=== PATIENT | male | born 1995 | race Caucasian/White ===

== ENCOUNTER 2023-05-10 20:51 | Inpatient (IN) ==
--- NOTE | 2023-05-10 21:32 | Emergency Department Note ---
Impression & Plan Depression with suicidal ideation, Suicide attempt by alcohol poisoning ED Provider Note NAME: JORGE HAIDER AGE: 27 SEX: M : 1995 ARRIVES VIA: Walk-In INFORMANT: [Patient][, ] ED PROVIDER(S): [Francisco Allen MD] CHIEF COMPLAINT: Suicidal ideation, depression MEDICAL DECISION MAKING: Patient presents due to concern for suicidal ideation and associated depression and had plan to drink herself to . Blood work was obtained and the patient was deemed medically cleared. The patient was evaluated by the psych case work aide. Patient currently voluntary 201 and does not appear to be clinically intoxicated. Patient signed out to Dr. Cuellar pending disposition. Prior /Outside records reviewed: [none] Differential diagnosis: Mood disorder, infection, hypoglycemia, electrolyte abnormalities, cardiac sourc es, intracerebral event, toxicologic, trauma, neurologic, as well as other pathologies. Diagnostics, as interpreted by me: Medical decision rules: Suicide severity scale HPI: Patient presents due to concern for suicidal ideation with plan to drink herself to . The patient states that she began drinking vodka around 11 and finished around 5 ventricular half of 10/05. The patient believes that she may have vomited for amount of this up. The patient states that she did this with the intent to kill herself. The patient does have a prior history of drinking and associated overdose of muscle relaxants in the past. Patient denies any HI or AVH. Outside of her concern for her own safety in terms of self-harm the patient has no other concerns about home safety. Patient denies any access to guns or weapons. Patient states sleep and appetite have been okay but could be improved. PAST MEDICAL HISTORY: Transgender male to female PAST SURGICAL HISTORY: No pertinent past surgical history SOCIAL HISTORY: Uses alcohol but denies tobacco or drug use. HOME MEDICATIONS: [See Below] ALLERGIES: [See Below] VITALS: [See Below] PHYSICAL EXAMINATION: GENERAL: NAD, non-toxic. EYE EXAM: Normal conjunctiva. PERRL, no anisocoria and EOM's grossly intact w/o pain. OROPHARYNX: Moist mucus membranes, grossly normal dentition. NECK: Supple, no nuchal rigidity, no adenopathy, non-tender. No signs of meningismus. FROM of the neck with good chin to chest and neck extension. No stridor. LUNGS: Clear to auscultation. Normal chest wall mechanics. HEART: NSR, no MRG. ABDOMEN: Abdomen soft, non-tender, no masses, no rebound or guarding. BACK: No CVA TTP. SKIN: No rashes and no bruising. UPPER EXTREMITIES: Upper extremities are grossly normal. LOWER EXTREMITIES: Grossly normal, no edema. NEURO EXAM: A&O x3, cranial nerves II-XII grossly intact, normal speech, moves all 4 extremities. Psych: Depressed mood, SI with plan, negative HI or AVH. 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 Beliefs That Will Affect Care: None Feels Safe at Home: Yes Gender Identity: Transgender Female Assistive Devices: Contacts and Glasses Allergies Allergies Allergy/AdvReac Type Severity Reaction Status Date / Time cat dander Allergy Mild Unverified 05/11/23 17:27 dog dander Allergy Mild Unverified 05/11/23 17:27 Home Meds Home Medications Medication Instructions Recorded Confirmed Carepoint Luer Lock Syringe 05/10/23 05/10/23 Hypodermic [place] 05/10/23 05/10/23 albuterol sulfate 90 mcg/actuation 1 puff inhalation Q6H PRN 05/11/23 05/11/23 aerosol inhaler Shortness Of Breath Or Wheezing progesterone micronized 200 mg 200 mg PO QPM 05/11/23 05/11/23 capsule spironolactone 100 mg tablet 100 mg PO BID 05/11/23 05/11/23 Previous Rx's Medication Instructions Recorded escitalopram oxalate 10 mg tablet 10 mg PO QAM #30 tabs 05/13/23 estradiol valerate 20 mg/mL 8 mg (0.4 mL) IM WK #5 mL 05/13/23 intramuscular oil Results & Data (ED) Vital Signs Vital Signs - 24 hr 05/10/23 21:00 Temperature 36.5 C Temperature Source Temporal Artery Scan Pulse Rate 104 H Respiratory Rate 20 Respiratory Effort / Characteristics Non-Labored Spontaneous Respiratory Depth Normal Blood Pressure 128/78 Blood Pressure Mean 94 Pulse Oximetry 97 Oxygen Delivery Method Room Air Sepsis New/Unexplained Change in Mental Status N/A Sepsis Action Taken by Nursing No Action Required Home Medications Current Medication List: was personally reviewed by ma Laboratory Data Attestation: I reviewed the patient's lab results. 05/10/23 21:22 05/10/23 21:22 Lab Results 05/10/23 05/10/23 05/10/23 Range/Units 21:15 21:15 21:22 WBC 14.16 H (4.8-10.8) K/ul RBC 4.66 (4.20-5.40) M/uL Hgb 15.0 (12.0-16.0) g/dl Hct 42.0 (37.0-47.0) % MCV 90.1 (80.0-100.0) fL MCH 32.2 (25.0-34.0) pg MCHC 35.7 (32.0-36.0) g/dL RDW Std Deviation 38.9 (36.4-46.3) fL RDW Coeff of Monica 11.9 (11.5-14.5) % Plt Count 362 (130-400) K/uL MPV 10.9 (9.4-12.4) fL Immature Gran % (Auto) 0.4 % Neut % (Auto) 80.3 % Lymph % (Auto) 12.4 % [place] % (Auto) 6.2 % Eos % (Auto) 0.3 % Baso % (Auto) 0.4 % Neut # (Auto) 11.37 H (1.40-6.50) K/uL Lymph # (Auto) 1.76 (1.2-3.4) K/uL [place] # (Auto) 0.88 H (0.11-0.59) K/uL Eos # (Auto) 0.04 (0-0.50) K/uL Baso # (Auto) 0.06 (0-0.2) K/uL Immature Gran # (Auto) 0.05 (0.01-0.20) K/uL Sodium (136-145) mmol/L Potassium (3.5-5.1) mmol/L Chloride (98-107) mmol/L Carbon Dioxide (21-32) mmol/L Anion Gap (3-11) BUN (6-23) mg/dl Creatinine (0.6-1.2) mg/dl Est Cr Clr Drug Dosing ml/min Est GFR ( Amer) ml/min Est GFR (Non-Af Amer) ml/min BUN/Creatinine Ratio (10-20) Glucose (70-99(Fasting)) mg/dl Calcium (8.6-10.3) mg/dl Total Bilirubin (0.2-1.0) mg/dl AST (13-39) U/L ALT (7-52) U/L Alkaline Phosphatase (34-104) U/L Total Protein (6.0-8.3) gm/dl Albumin (3.4-5.0) gm/dl Globulin (2.5-4.0) gm/dl Albumin/Globulin Ratio (0.9-2) TSH (0.300-4.500) uIu/ml Urine Color Yellow Urine Appearance Clear (Clear) Urine pH 6.0 (4.5-7.5) Ur Specific [place] 1.019 (1.000-1.030) Urine Protein Negative (Negative) Urine Glucose (UA) Negative (Negative) Urine Ketones Trace H (Negative) Urine Blood Negative (Negative) Urine Nitrite Negative (Negative) Urine Bilirubin Negative (Negative) Urine Urobilinogen Negative (Negative) Ur Leukocyte Esterase Negative (Negative) POC Ur Test (NEG) Salicylates (3.0-30) mg/dl Urine Opiates Screen Neg (Neg) Ur Methadone, Qual Neg (Neg) Acetaminophen (10-30) ug/ml Urine Barbiturates Neg (Neg) Ur Phencyclidine (PCP) Neg (Neg) U Amphetamin/Meth Scrn Neg (Neg) MDMA (Ecstasy) Screen Neg (Neg) U Benzodiazepines Scrn Neg (Neg) Ur Cocaine Metabolite Neg (Neg) U Marijuana (THC) Screen Neg (Neg) Ethyl Alcohol mg/dL (<10.0) mg/dl SARS-CoV-2, RNA, NAAT (NEGATIVE) 05/10/23 05/10/23 05/10/23 Range/Units 21:22 21:22 21:22 WBC (4.8-10.8) K/ul RBC (4.20-5.40) M/uL Hgb (12.0-16.0) g/dl Hct (37.0-47.0) % MCV (80.0-100.0) fL MCH (25.0-34.0) pg MCHC (32.0-36.0) g/dL RDW Std Deviation (36.4-46.3) fL RDW Coeff of Monica (11.5-14.5) % Plt Count (130-400) K/uL MPV (9.4-12.4) fL Immature Gran % (Auto) % Neut % (Auto) % Lymph % (Auto) % [place] % (Auto) % Eos % (Auto) % Baso % (Auto) % Neut # (Auto) (1.40-6.50) K/uL Lymph # (Auto) (1.2-3.4) K/uL [place] # (Auto) (0.11-0.59) K/uL Eos # (Auto) (0-0.50) K/uL Baso # (Auto) (0-0.2) K/uL Immature Gran # (Auto) (0.01-0.20) K/uL Sodium 137 (136-145) mmol/L Potassium 3.6 (3.5-5.1) mmol/L Chloride 104 (98-107) mmol/L Carbon Dioxide 25 (21-32) mmol/L Anion Gap 8 (3-11) BUN 11 (6-23) mg/dl Creatinine 0.73 (0.6-1.2) mg/dl Est Cr Clr Drug Dosing 109.3 ml/min Est GFR ( Amer) 131.7 ml/min Est GFR (Non-Af Amer) 113.7 ml/min BUN/Creatinine Ratio 15.1 (10-20) Glucose 89 (70-99(Fasting)) mg/dl Calcium 9.8 (8.6-10.3) mg/dl Total Bilirubin 0.3 (0.2-1.0) mg/dl AST 15 (13-39) U/L ALT 10 (7-52) U/L Alkaline Phosphatase 50 (34-104) U/L Total Protein 7.8 (6.0-8.3) gm/dl Albumin 4.8 (3.4-5.0) gm/dl Globulin 3.0 (2.5-4.0) gm/dl Albumin/Globulin Ratio 1.6 (0.9-2) TSH 1.863 (0.300-4.500) uIu/ml Urine Color Urine Appearance (Clear) Urine pH (4.5-7.5) Ur Specific [place] (1.000-1.030) Urine Protein (Negative) Urine Glucose (UA) (Negative) Urine Ketones (Negative) Urine Blood (Negative) Urine Nitrite (Negative) Urine Bilirubin (Negative) Urine Urobilinogen (Negative) Ur Leukocyte Esterase (Negative) POC Ur Test (NEG) Salicylates < 3.0 L (3.0-30) mg/dl Urine Opiates Screen (Neg) Ur Methadone, Qual (Neg) Acetaminophen < 3 L (10-30) ug/ml Urine Barbiturates (Neg) Ur Phencyclidine (PCP) (Neg) U Amphetamin/Meth Scrn (Neg) MDMA (Ecstasy) Screen (Neg) U Benzodiazepines Scrn (Neg) Ur Cocaine Metabolite (Neg) U Marijuana (THC) Screen (Neg) Ethyl Alcohol mg/dL (<10.0) mg/dl SARS-CoV-2, RNA, NAAT (NEGATIVE) 05/10/23 05/10/23 05/10/23 Range/Units 21:22 21:22 21:38 WBC (4.8-10.8) K/ul RBC (4.20-5.40) M/uL Hgb (12.0-16.0) g/dl Hct (37.0-47.0) % MCV (80.0-100.0) fL MCH (25.0-34.0) pg MCHC (32.0-36.0) g/dL RDW Std Deviation (36.4-46.3) fL RDW Coeff of Monica (11.5-14.5) % Plt Count (130-400) K/uL MPV (9.4-12.4) fL Immature Gran % (Auto) % Neut % (Auto) % Lymph % (Auto) % [place] % (Auto) % Eos % (Auto) % Baso % (Auto) % Neut # (Auto) (1.40-6.50) K/uL Lymph # (Auto) (1.2-3.4) K/uL [place] # (Auto) (0.11-0.59) K/uL Eos # (Auto) (0-0.50) K/uL Baso # (Auto) (0-0.2) K/uL Immature Gran # (Auto) (0.01-0.20) K/uL Sodium (136-145) mmol/L Potassium (3.5-5.1) mmol/L Chloride (98-107) mmol/L Carbon Dioxide (21-32) mmol/L Anion Gap (3-11) BUN (6-23) mg/dl Creatinine (0.6-1.2) mg/dl Est Cr Clr Drug Dosing ml/min Est GFR ( Amer) ml/min Est GFR (Non-Af Amer) ml/min BUN/Creatinine Ratio (10-20) Glucose (70-99(Fasting)) mg/dl Calcium (8.6-10.3) mg/dl Total Bilirubin (0.2-1.0) mg/dl AST (13-39) U/L ALT (7-52) U/L Alkaline Phosphatase (34-104) U/L Total Protein (6.0-8.3) gm/dl Albumin (3.4-5.0) gm/dl Globulin (2.5-4.0) gm/dl Albumin/Globulin Ratio (0.9-2) TSH (0.300-4.500) uIu/ml Urine Color Urine Appearance (Clear) Urine pH (4.5-7.5) Ur Specific [place] (1.000-1.030) Urine Protein (Negative) Urine Glucose (UA) (Negative) Urine Ketones (Negative) Urine Blood (Negative) Urine Nitrite (Negative) Urine Bilirubin (Negative) Urine Urobilinogen (Negative) Ur Leukocyte Esterase (Negative) POC Ur Test NEG (NEG) Salicylates (3.0-30) mg/dl Urine Opiates Screen (Neg) Ur Methadone, Qual (Neg) Acetaminophen (10-30) ug/ml Urine Barbiturates (Neg) Ur Phencyclidine (PCP) (Neg) U Amphetamin/Meth Scrn (Neg) MDMA (Ecstasy) Screen (Neg) U Benzodiazepines Scrn (Neg) Ur Cocaine Metabolite (Neg) U Marijuana (THC) Screen (Neg) Ethyl Alcohol mg/dL 79.9 H (<10.0) mg/dl SARS-CoV-2, RNA, NAAT NEGATIVE (NEGATIVE) Administered Medications Discontinued Medications Escitalopram Oxalate (Escitalopram Oxalate 10 Mg Tab) [facility] [place] 06/10/23 12:44 Last Admin: 05/13/23 08:18 Dose: 5 mg Documented By: Admin: 05/12/23 08:39 Dose: 5 mg Documented By: Admin: 05/11/23 13:00 Dose: 5 mg Documented By: MARIEF Folic Acid (Folic Acid 1 Mg Tab) 1 mg PO QAM [facility] Stop: 06/10/23 08:59 Last Admin: 05/13/23 08:17 Dose: 1 mg Documented By: Admin: 05/12/23 08:40 Dose: 1 mg Documented By: Admin: 05/11/23 09:59 Dose: 1 mg Documented By: BNT Spironolactone (Spironolactone 100 Mg Tab) 100 mg PO BID17 [facility] Stop: 06/10/23 16:59 Last Admin: 05/13/23 17:08 Dose: 100 mg Documented By: Admin: 05/13/23 08:19 Dose: 100 mg Documented By: Admin: 05/12/23 17:09 Dose: 100 mg Documented By: Admin: 05/12/23 08:40 Dose: 100 mg Documented By: Admin: 05/11/23 17:12 Dose: 100 mg Documented By: TEREZAR Thiamine HCl (Thiamine Hcl 100 Mg Tab) [facility] [place]: 06/10/23 08:59 Last Admin: 05/13/23 08:18 Dose: 100 mg Documented By: Admin: 05/12/23 08:40 Dose: 100 mg Documented By: Admin: 05/11/23 09:59 Dose: 100 mg Documented By: BNT Discharge Plan Visit Data Chief Complaint: Mental Health Evaluation Stated Complaint: SUICIDAL THOUGHTS, INTOXICATED ED Provider: Francisco Allen Discharge Problem: Depression with suicidal ideation, Suicide attempt by alcohol poisoning Patient Disposition: Admitted As Inpatient Discharge Instructions Interventions: ED Discharge Assessment Last Done: 05/11/23 01:40
[2023-05-10 22:19] LABS: Basophils # (auto) 0.06 K/uL (0-0.2); Basophils % (auto) 0.4 %; Eosinophils # (auto) 0.04 K/uL (0-0.50); Eosinophils % (auto) 0.3 %; Immature Granulocytes # (auto) 0.05 K/uL (0.01-0.20); Immature Granulocytes % (auto) 0.4 %; Lymphocytes # (auto) 1.76 K/uL (1.2-3.4); Lymphocytes % (auto) 12.4 %; Mean Corpuscular Hemoglobin 32.2 pg (25.0-34.0); Mean Corpuscular Hgb Conc 35.7 g/dL (32.0-36.0); Mean Corpuscular Volume 90.1 fL (80.0-100.0); Mean Platelet Volume 10.9 fL (9.4-12.4); Monocytes # (auto) 0.88 K/uL (0.11-0.59); Monocytes % (auto) 6.2 %; Neutrophils # (auto) 11.37 K/uL (1.40-6.50); Neutrophils % (auto) 80.3 %; Platelet Count 362 K/uL (130-400); RDW Coefficient of Variation 11.9 % (11.5-14.5); RDW Standard Deviation 38.9 fL (36.4-46.3); Red Blood Count 4.66 M/uL (4.20-5.40); White Blood Count 14.16 K/ul (4.8-10.8)
[2023-05-10 22:32] LABS: Appearance Urine Clear (Clear); Bilirubin Urine Negative (Negative); Blood Urine Negative (Negative); Color Urine Yellow; Glucose Urine UA Negative (Negative); Ketones Urine Trace (Negative); Leukocyte Esterase Urine Negative (Negative); Nitrite Urine Negative (Negative); Protein Urine Negative (Negative); Specific Gravity Urine 1.019 (1.000-1.030); Urobilinogen Urine Negative (Negative)
[2023-05-10 22:37] LABS: Acetaminophen < 3 ug/ml (10-30); Salicylate < 3.0 mg/dl (3.0-30)
[2023-05-10 22:38] LABS: Amphetamines+Metham, Urine Neg (Neg); Barbiturates, Urine Neg (Neg); Benzodiazepine, Urine Neg (Neg); Cocaine, Urine Neg (Neg); MDMA (Ecstacy), Urine Neg (Neg); Methadone, Urine Neg (Neg); Opiate, Urine Neg (Neg); Phencyclidine, Urine Neg (Neg)
[2023-05-10 22:41] LABS: Albumin Globulin Ratio 1.6 (0.9-2); Albumin Level 4.8 gm/dl (3.4-5.0); BUN Creatinine Ratio 15.1 (10-20); Bilirubin,Total 0.3 mg/dl (0.2-1.0); Calcium 9.8 mg/dl (8.6-10.3); Creatinine Clr Calc Pharmacy 109.3 ml/min; Est GFR (African American) 131.7 ml/min; Est GFR (Non-African American) 113.7 ml/min; Potassium 3.6 mmol/L (3.5-5.1); Total Protein 7.8 gm/dl (6.0-8.3)
[2023-05-11] MEDS ORDERED: ACETAMINOPHEN 325 MG TAB PO PRN (02:19)
[2023-05-11] MEDS ORDERED: BISMUTH SUBSALICYLATE LIQD 236 ML PO PRN (02:19)
[2023-05-11] MEDS ORDERED: ALUMINUM/MAGNESIUM SUSP 30 ML UDC PO PRN (02:19)
[2023-05-11] MEDS ORDERED: hydrOXYzine HCl 25 MG TAB PO PRN ×2 (02:19)
[2023-05-11] MEDS ORDERED: MAGNESIUM HYDROXIDE SUSP 30 ML UDC PO PRN (02:19)
[2023-05-11] MEDS ORDERED: SODIUM CHLORIDE 0.65% NA SOLN 45 ML (OCEAN) PRN (02:19)
--- NOTE | 2023-05-11 03:56 | Emergency Department Note ---
ED Visit Note This case was signed out to me at change of shift awaiting evaluation by [facility] S. They have evaluated the patient and accepted her to their unit. .
[2023-05-11] MEDS ORDERED: LORazepam 1 MG TAB PO PRN ×3 (06:52)
[2023-05-11] MEDS ORDERED: Ativan PO Alcohol Withdrawal--Active Protocol PO PRN (06:52)
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
[2023-05-11] MEDS: THIAMINE HCL 100 MG TAB PO SCH (09:59)
[2023-05-11] MEDS: FOLIC ACID 1 MG TAB PO SCH (09:59)
[2023-05-11] MEDS: ESCITALOPRAM OXALATE 10 MG TAB PO SCH (13:00)
[2023-05-11] MEDS ORDERED: ALBUTEROL HFA 8 GM INHALER INH PRN (14:25)
[2023-05-11] MEDS: SPIRONOLACTONE 100 MG TAB PO SCH (17:12)
--- NOTE | 2023-05-11 17:48 | Electrocardiogram Report ---
Test Reason : Blood Pressure : / mmHG Vent. Rate : 062 BPM Atrial Rate : 062 BPM P-R Int : 134 ms QRS Dur : 086 ms QT Int : 412 ms P-R-T Axes : 058 052 055 degrees QTc Int : 418 ms Sinus rhythm with marked sinus arrhythmia Otherwise normal ECG No previous ECGs available Confirmed by Rodney Stovall ([id number]) on 05/11/2023 5:47:51 PM Referred By: REFERRED SELF Confirmed By:Jordi Stovall
[2023-05-12] MEDS: ESCITALOPRAM OXALATE 10 MG TAB PO SCH (08:39)
[2023-05-12] MEDS: SPIRONOLACTONE 100 MG TAB PO SCH ×2 (08:40→17:09)
[2023-05-12] MEDS: FOLIC ACID 1 MG TAB PO SCH (08:40)
[2023-05-12] MEDS: THIAMINE HCL 100 MG TAB PO SCH (08:40)
--- NOTE | 2023-05-12 15:21 | Psychiatric Progress Note ---
Date of Service May 12, 2023 Impression / Recommendations Impression 27 year old woman admitted for worsening depression, anxiety and suicide attempt via alcohol ingestion with recent increasing alcohol use in context of gender transition and limited support. Diagnostically consistent with unspecified depressive disorder with differential including major depressive disorder with anxious features and/or gender dysphoria versus alcohol-induced depression given recent increase of use. She is deemed in need of psychiatric hospitalization for diagnostic clarification, safety and stabilization, medication management and development of further coping skills. MNPR: gender diversity 05/12/23: Reviewed care by Dr. Michael in italics. notes improvement Inventory Assets Strengths: employed, willing to get treatment Needs: safety and stabilization, medication adjustment, additional coping skills, increased outpatient services Suicide Risk Level Suicide Risk Level: High-Moderate (q15 min suicide checks) Suicide Risk Level Comments: Risk Factors Assessment Male: No : Yes Do You Have Access To A Gun?: No Health Problems: No Mental Health Diagnoses: Yes Substance Use Disorders: Yes Previous Attempt: Yes Family History of Suicide: No Previous Psychiatric Hospitalization: No Protective Factors Assessment Employed: Yes ([employer]) Stable Relationships: Yes (with roommate) Supportive Family: No Interval History Identifying Information Julieth HAIDER is a 27-year-old transgender woman who currently lives in [place] with her friend, has a history of gender dysphoria, history of intermittent SI, and was admitted on 05/11/23 01:21 on a 201 voluntary commitment for suicide attempt via alcohol intoxication. Chief Complaint "I really want to start my new job Sunday, the thing I did this over won't happen again and besides it was stupid." Review of Systems Sleep Information Total Hours of Sleep: 6 Sleep Comments: pt admit with late admission Meal Information Percent Meal Consumed - Breakfast: 100 Percent Meal Consumed - Lunch: 100 Percent Meal Consumed - Dinner: 80 Subjective Subjective Patient was seen & assessed and interval progress reviewed with nursing and social work. Julieth denies any side effects related to Lexapro, attributes some mild fatigue to restarting spironolactone. Discussed their frustration with outpatient scheduling/messaging systems. States roommate got rid of all of the alcohol in the apartment. Agreeable to a support meeting. Physical Exam Psychiatric Orientation: alert and oriented x 3 Apperance: appropriately dressed and appropriately groomed Eye Contact: good eye contact Motor Behavior: no abnormal motor movements Speech: normal rate/rhythm/volume of speech Affect: + depressed affect Mood: + depressed mood Thought Process: goal directed thought process Thought Content: reality based without delusions Suicidal Thoughts: denies suicidal thoughts Homicidal Thoughts: denies homicidal thoughts Hallucinations: no auditory hallucinations and no visual hallucinations Cognition: attention grossly intact and language grossly intact Estimated Intelligence: consistent with education level Insight: + limited insight Judgment: + limited judgement Vital Signs (Past 24 Hours) Last Vital Signs Temp 36.6 C 05/12/23 06:55 Pulse 64 05/12/23 06:56 Resp 16 05/12/23 06:55 BP 106/71 05/12/23 06:56 Pulse Ox 97 05/11/23 00:21 O2 Del Method Room Air 05/11/23 00:21 Results & Data [facility] Current Inpatient Medications Current Inpatient Medications: Current Inpatient Medications Acetaminophen (Acetaminophen 325 Mg Tab) 650 mg PO Q4H PRN PRN Reason: Headache or Minor Fever Stop: 06/10/23 02:18 Al Hydrox/Mg Hydrox/Simethicone (Aluminum/Magnesium Susp 30 Ml Udc) 30 ml PO Q4H PRN PRN Reason: GI Upset Stop: 06/10/23 02:18 Albuterol (Albuterol Hfa 8 Gm Inhaler) 1 puffs INH Q6H PRN PRN Reason: Shortness Of Breath Or Wheezing Stop: 06/10/23 14:24 Bismuth Subsalicylate (Bismuth Subsalicylate Liqd 236 Ml) 15 ml PO PRN PRN PRN Reason: Loose Stool Stop: 06/10/23 02:18 Escitalopram Oxalate (Escitalopram Oxalate 10 Mg Tab) 5 mg PO QAM JONEL Stop: 06/10/23 12:44 Last Admin: 05/12/23 08:39 Dose: 5 mg Folic Acid (Folic Acid 1 Mg Tab) 1 mg PO QAM JONEL Stop: 06/10/23 08:59 Last Admin: 05/12/23 08:40 Dose: 1 mg Hydroxyzine HCl (Hydroxyzine Hcl 25 Mg Tab) 50 mg PO HSZ PRN PRN Reason: Insomnia Stop: 06/10/23 02:18 Hydroxyzine HCl (Hydroxyzine Hcl 25 Mg Tab) 25 mg PO Q4H PRN PRN Reason: Anxiety Stop: 06/10/23 02:18 Magnesium Hydroxide (Magnesium Hydroxide Susp 30 Ml Udc) 30 ml PO DAILY PRN PRN Reason: Constipation Stop: 06/10/23 02:18 Sodium Chloride (Sodium Chloride 0.65% Na Soln 45 Ml ([place])) 1 - 2 sprays NA PRN PRN PRN Reason: Nasal Dryness/Congestion Stop: 06/10/23 02:18 Spironolactone (Spironolactone 100 Mg Tab) 100 mg PO [id number] JONEL Stop: 06/10/23 16:59 Last Admin: 05/12/23 08:40 Dose: 100 mg Thiamine HCl (Thiamine Hcl 100 Mg Tab) 100 mg PO QAM JONEL Stop: 06/10/23 08:59 Last Admin: 05/12/23 08:40 Dose: 100 mg Mental Health & Subst Abuse Tx Psychiatrist Name of Psychiatrist: [facility] - Intake Psychiatrist's Date Of Appointment With Psychiatric Provider: 05/15/23 Time of Appointment with Psychiatrist: 3:00 PM Psychiatric Appointment Comment: Telehealth - link will be sent to phone/email Therapist Name of Therapist: [facility] - Intake Therapist's Date of Therapist Appointment: 05/15/23 Time of Therapist Appointment: 3:00 PM Therapy Appointment Comment: Telehealth - link will be sent to phone/email Business Machines Teacher Name of Business Machines Teacher: [employer] Phone Number for Business Machines Teacher: [phone] Case Management Appointment Comment: Please call if you are interested in a Blended Business Machines Teacher. Post Discharge Appointments Primary Care Physician Name Of Family Doctor/PCP: [facility] Date of Future Appointment with PCP: 06/21/2023 Time of Appointment with PCP: 12:45 PM arrival time Provider Appointment Comment: [place] [id number] Contact Information Discharge Discharge Address: [address] [place], [place] [address]
[2023-05-13] MEDS: FOLIC ACID 1 MG TAB PO SCH (08:17)
[2023-05-13] MEDS: THIAMINE HCL 100 MG TAB PO SCH (08:18)
[2023-05-13] MEDS: ESCITALOPRAM OXALATE 10 MG TAB PO SCH (08:18)
[2023-05-13] MEDS: SPIRONOLACTONE 100 MG TAB PO SCH ×2 (08:19→17:08)
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
== END 2023-05-13 18:45 | disposition home or self-care (01) | DRG 881 ==
LOC: EDSEX 20:51 → ED 20:51 → 3S 05-11 01:21 → SUATTDRO 05-11 01:21 → 3S 05-11 01:40

== ENCOUNTER 2024-07-30 21:03 | Inpatient (IN) ==
--- NOTE | 2024-07-30 21:42 | Emergency Department Note ---
Impression & Plan Depression with suicidal ideation ED Provider Note NAME: JORGE HAIDER AGE: 29 SEX: M : 1995 ARRIVES VIA: Walk-In INFORMANT: Patient, ED PROVIDER(S): Jeffrey Ignacio DO CHIEF COMPLAINT: Mental health evaluation HPI: The patient is a 29-year-old female who presented to the emergency department for an evaluation of mental health issues. The patient states that 2 days ago she tried to commit suicide by putting a hose from the exhaust pipe into the passenger compartment. The patient was exposed to this department for approximately 1 hour. There was no loss of conscious. The patient had no vomiting. The patient did not try any other times to harm herself however she presented to the emergency department today because of ongoing and worsening thoughts of suicide. Patient has a similar episode in her history approxi-1 year ago. The patient denies any recent drug or alcohol abuse. The patient has been noncompliant with some medications. ROS: See above HPI for pertinent positives & negatives. A total of 10 systems reviewed and were otherwise negative. PAST MEDICAL HISTORY: See Below PAST SURGICAL HISTORY: See Below FAMILY HISTORY: See Below SOCIAL HISTORY: See Below HOME MEDICATIONS: See Below ALLERGIES: See Below VITALS: See Below PHYSICAL EXAMINATION: GENERAL: Patient is awake alert in no acute distress patient is resting comfortably and showing no signs of anxiety EYES: The conjunctivae are clear. The pupils are round and reactive. EARS, NOSE, MOUTH AND THROAT: The nose is without any evidence of any deformity. Mucous membranes are moist. Tongue is midline. NECK: The neck is nontender and supple. RESPIRATORY: Normal respiratory effort is noted there is no evidence of wheezing rhonchi or rales CARDIOVASCULAR: Regular rate and rhythm noted there no murmurs rubs or gallops normal S1 normal S2. GASTROINTESTINAL: The abdomen is soft. Abdomen is nontender. MUSCULOSKELETAL/EXTREMITIES: There is no evidence of gross deformity full range of motion is noted in the hips and shoulders. SKIN: There is no obvious evidence of any rash. There are no petechiae, pallor or cyanosis noted. NEUROLOGIC: Patient is awake alert and oriented x3 strength is symmetric patellar reflexes are 2+ bilaterally PSYCH: The patient makes poor eye contact mostly evaluation. The patient's affect is flat. The patient admits to suicidal ideation. MEDICAL DECISION MAKING: Is a 29-year-old female who presented to the emergency department for mental health evaluation. The patient had a suicidal gesture a few days ago. Clear to the emergency department. Patient was evaluated by the mental-health vocational case manager. The patient was felt to be a good candidate for inpatient management. Patient was evaluated from the delegate from [facility] S. Triage Nursing notes reviewed. Prior medical records reviewed Vital Signs: reviewed and remarkable for no significant abnormalities Differential diagnosis: Mood disorder, infection, hypoglycemia, electrolyte abnormalities, cardiac sources, intracerebral event, toxicologic, trauma, neurologic, as well as other pathologies. ER treatment provided: See below Diagnostics interpreted by me: ECG: none Laboratory studies: As stated above and show below. Imaging studies: See below. Consultation(s): I discussed this case with the emergency department with vocational case manager. Past Med/Surg History Problem List (Updated 07/31/24 @ 01:30 by Jeffrey Ignacio DO) Depression with suicidal ideation (Acute) Medical History Gender dysphoria Suicide attempt by alcohol poisoning Family History Other Congestive heart failure Social History Smoking Status: Current every day smoker Tobacco Type: E-cigarettes / Vaping Preferred Language: Rw[place] Communication Ability: Effective Fire Prevention Inspector Required: No Beliefs That Will Affect Care: None Feels Safe at Home: Yes Gender Identity: Female Assistive Devices: Contacts and Glasses Allergies Allergies Allergy/AdvReac Type Severity Reaction Status Date / Time cat dander Allergy Mild Unverified 05/11/23 17:27 dog dander Allergy Mild Unverified 05/11/23 17:27 Home Meds Home Medications Medication Instructions Recorded Confirmed spironolactone 100 mg tablet 100 mg PO BID 05/11/23 07/30/24 escitalopram oxalate 20 mg tablet 20 mg PO 1XD 07/30/24 07/30/24 estradiol 0.1 mg/24 hr semiweekly 3 patch transdermal 2XWK 07/30/24 07/30/24 transdermal patch progesterone micronized 200 mg 200 mg PO HS 07/30/24 07/30/24 capsule Results & Data (ED) Vital Signs Vital Signs - 24 hr 07/30/24 21:04 07/30/24 21:04 07/31/24 01:13 Temperature 36.6 C 36.6 C Temperature Source Temporal Artery Scan Oral Pulse Rate 91 H Pulse Rate [Finger] 91 H 48 L Respiratory Rate 18 18 16 Respiratory Effort / Characteristics Non-Labored Spontaneous Non-Labored Spontaneous Respiratory Depth Normal Respiratory Pattern Regular Blood Pressure 133/92 Blood Pressure [Right Arm] 133/92 124/82 Blood Pressure Mean 105 Blood Pressure Mean [Right Arm] 105 96 Blood Pressure Position Sitting Blood Pressure Position [Right Arm] Sitting Pulse Oximetry 100 100 98 Oxygen Delivery Method Room Air Room Air Room Air Sepsis Recent Fever Within 48 Hours No Sepsis New/Unexplained Change in Mental Status N/A Sepsis Action Taken by Nursing No Action Required Home Medications Current Medication List: was personally reviewed by me Laboratory Data Attestation: I reviewed the patient's lab results. 07/30/24 21:23 07/30/24 21:23 Lab Results 07/30/24 07/30/24 Range/Units 21:23 22:45 WBC 10.26 (4.8-10.8) K/ul RBC 4.74 (4.70-6.10) M/uL Hgb 15.1 (14.0-18.0) g/dl Hct 42.8 (42.0-52.0) % MCV 90.3 (80.0-100.0) fL MCH 31.9 (25.0-34.0) pg MCHC 35.3 (32.0-36.0) g/dL RDW Std Deviation 38.9 (36.4-46.3) fL RDW Coeff of Monica 11.8 (11.5-14.5) % Plt Count 344 (130-400) K/uL MPV 10.1 (9.4-12.4) fL Immature Gran % (Auto) 0.3 % Neut % (Auto) 69.1 % Lymph % (Auto) 20.5 % Walker % (Auto) 7.8 % Eos % (Auto) 1.7 % Baso % (Auto) 0.6 % Neut # (Auto) 7.10 H (1.40-6.50) K/uL Lymph # (Auto) 2.10 (1.20-3.40) K/uL Walker # (Auto) 0.80 H (0.11-0.59) K/uL Eos # (Auto) 0.17 (0.00-0.50) K/uL Baso # (Auto) 0.06 (0.00-0.20) K/uL Immature Gran # (Auto) 0.03 (0.01-0.20) K/uL Carboxyhemoglobin 0.5 % THgb Sodium 139 (136-145) mmol/L Potassium 3.4 L (3.5-5.1) mmol/L Chloride 104 (98-107) mmol/L Carbon Dioxide 27 (21-32) mmol/L Anion Gap 8 (3-11) BUN 9 (6-23) mg/dl Creatinine 0.99 (0.6-1.4) mg/dl Est Cr Clr Drug Dosing 86.6 ml/min eGFR 106.41 BUN/Creatinine Ratio 9.1 L (10-20) Glucose 50 L* (70-99(Fasting)) mg/dl POC Glucose 84 (70-99) mg/dl Calcium 9.8 (8.6-10.3) mg/dl Total Bilirubin 0.7 (0.2-1.0) mg/dl AST 21 (13-39) U/L ALT 16 (7-52) U/L Alkaline Phosphatase 54 (34-104) U/L Total Protein 7.7 (6.0-8.3) gm/dl Albumin 4.8 (3.4-5.0) gm/dl Globulin 2.9 (2.5-4.0) gm/dl Albumin/Globulin Ratio 1.7 (0.9-2) TSH 1.104 (0.300-4.500) uIu/ml Urine Color Dark Yellow Urine Appearance Clear (Clear) Urine pH 5.5 (4.5-7.5) Ur Specific [place] 1.029 (1.000-1.030) Urine Protein Negative (Negative) Urine Glucose (UA) Negative (Negative) Urine Ketones Trace H (Negative) Urine Blood Negative (Negative) Urine Nitrite Negative (Negative) Urine Bilirubin 1+ H (Negative) Urine Urobilinogen Negative (Negative) Ur Leukocyte Esterase Negative (Negative) Salicylates < 3.0 L (3.0-30) mg/dl Urine Opiates Screen Neg (Neg) Ur Methadone, Qual Neg (Neg) Urine Fentanyl Screen Neg (Neg) Acetaminophen < 3 L (10-30) ug/ml Urine Barbiturates Neg (Neg) Ur Phencyclidine (PCP) Neg (Neg) U Amphetamin/Meth Scrn Neg (Neg) MDMA (Ecstasy) Screen Neg (Neg) U Benzodiazepines Scrn Neg (Neg) Ur Cocaine Metabolite Neg (Neg) U Marijuana (THC) Screen Pos H (Neg) Ethyl Alcohol mg/dL < 10.0 (<10.0) mg/dl SARS-CoV-2, RNA, NAAT NEGATIVE (NEGATIVE) Discharge Plan Visit Data Chief Complaint: Mental Health Evaluation Stated Complaint: MENTAL ED Provider: Jeffrey Ignacio Discharge Problem: Depression with suicidal ideation Patient Disposition: Still a Patient Forms Stand Alone Forms: [facility], Suicide Prevention Resources Prescriptions Prescriptions: No Action spironolactone 100 mg tablet 100 mg PO BID progesterone micronized 200 mg capsule 200 mg PO HS escitalopram oxalate 20 mg tablet 20 mg PO 1XD estradiol 0.1 mg/24 hr patch semiweekly 3 patch transdermal 2XWK Referrals Referrals: PCP,NO [Physician] -
[2024-07-30 21:44] LABS: Appearance Urine Clear (Clear); Bilirubin Urine 1+ (Negative); Blood Urine Negative (Negative); Color Urine Dark Yellow; Glucose Urine UA Negative (Negative); Ketones Urine Trace (Negative); Leukocyte Esterase Urine Negative (Negative); Nitrite Urine Negative (Negative); Protein Urine Negative (Negative); Specific Gravity Urine 1.029 (1.000-1.030); Urobilinogen Urine Negative (Negative); pH Urine 5.5 (4.5-7.5)
[2024-07-30 21:48] LABS: Basophils # (auto) 0.06 K/uL (0.00-0.20); Basophils % (auto) 0.6 %; Eosinophils # (auto) 0.17 K/uL (0.00-0.50); Eosinophils % (auto) 1.7 %; Hematocrit (blood only) 42.8 % (42.0-52.0); Hemoglobin 15.1 g/dl (14.0-18.0); Immature Granulocytes # (auto) 0.03 K/uL (0.01-0.20); Immature Granulocytes % (auto) 0.3 %; Lymphocytes % (auto) 20.5 %; Mean Corpuscular Hemoglobin 31.9 pg (25.0-34.0); Mean Corpuscular Hgb Conc 35.3 g/dL (32.0-36.0); Mean Corpuscular Volume 90.3 fL (80.0-100.0); Mean Platelet Volume 10.1 fL (9.4-12.4); Monocytes % (auto) 7.8 %; Neutrophils % (auto) 69.1 %; Platelet Count 344 K/uL (130-400); RDW Coefficient of Variation 11.8 % (11.5-14.5); RDW Standard Deviation 38.9 fL (36.4-46.3); Red Blood Count 4.74 M/uL (4.70-6.10); White Blood Count 10.26 K/ul (4.8-10.8)
[2024-07-30 22:05] LABS: Acetaminophen < 3 ug/ml (10-30); Salicylate < 3.0 mg/dl (3.0-30)
[2024-07-30 22:12] LABS: Albumin Globulin Ratio 1.7 (0.9-2); Albumin Level 4.8 gm/dl (3.4-5.0); BUN Creatinine Ratio 9.1 (10-20); Bilirubin,Total 0.7 mg/dl (0.2-1.0); Calcium 9.8 mg/dl (8.6-10.3); Creatinine Clr Calc Pharmacy 86.6 ml/min; Globulin 2.9 gm/dl (2.5-4.0); Potassium 3.4 mmol/L (3.5-5.1); Total Protein 7.7 gm/dl (6.0-8.3)
[2024-07-30 22:17] LABS: Amphetamines+Metham, Urine Neg (Neg); Barbiturates, Urine Neg (Neg); Benzodiazepine, Urine Neg (Neg); Cocaine, Urine Neg (Neg); Fentanyl, Urine Neg (Neg); MDMA (Ecstacy), Urine Neg (Neg); Marijuana, Urine Pos (Neg); Methadone, Urine Neg (Neg); Opiate, Urine Neg (Neg); Phencyclidine, Urine Neg (Neg)
--- OUTSIDE RECORDS SUMMARY | 2024-07-31 01:03 | External Medical Summary | Summary of Care ---
Author Name Unknown Organization [facility] Address [address] [facility] [place] [address] Phone [phone] Care Team Providers Care Fire Patroller Name Role Phone Ziggy Kahn MD Primary Care Provider + Encounter Details Date Type Department Care Team (Late st Contact Info) Description 05/21/2024 Orders Only PATIENT PORTAL DO NOT DELETE THIS DEPT USED BY [place] [id number] Allergies Active Allergy Reactions Criticality Noted Date Comments Cat Dander Hives Medium 03/16/2023 Dog Dander Hives Medium 03/16/2023 Pollen Other (Please comment) Low 03/16/2023 Nasal congestion documented as of this encounter (statuses as of 05/21/2024) Medications Medication Sig Dispensed Refills Start Date End Date Status Albuterol Sulfate HFA 108 (90 Base) MCG/ACT Inhalation Aerosol SolutionIndications: Mild intermittent asthma without complication Inhale 2 Puffs by mouth every 6 hours as needed for Cough, Shortness of Breath or Wheezing. 18 g 2 03/16/2023 Active Escitalopram Oxalate 20 MG Oral Tablet (Lexapro) Take 1 Tablet by mouth in the morning. 1/2 pills for 2 weeks then 1 pill daily.. 30 Tablet 5 05/19/2024 Active Progesterone 200 MG Oral Capsule (Prometrium)Indicati ons:Gender dysphoria in adult Take 1 Capsule by mouth every night at bedtime. 30 Capsule 5 05/19/2024 Active Spironolactone 100 MG Oral Tablet (Aldactone)Indicatio ns:Gender dysphoria in adult Take 1 Tablet by mouth in the morning and 1 Tablet before bedtime. 60 Tablet 5 05/19/2024 Active Estradiol 0.1 MG/24HR Transdermal Patch Twice Weekly (Vivelle-Dot) Apply 3 patches to skin, change twice weekly 24 Patch 5 05/19/2024 Active documented as of this encounter (statuses as of 05/21/2024) Active Problems Problem Noted Date Diagnosed Date Gender dysphoria in adult 05/29/2023 Major depressive disorder wi th single episode, in partial remission 05/29/2023 Food insecurity 04/09/2023 Overview: Per [facility] Protocol documented as of this encounter (statuses as of 05/21/2024) Immunizations Name Administration Dates Next Due DTaP Dipth/Tet/Acell Pertussis (Infanrix), Peds 10/03/2000,01/08/1997,1996, 996 HPV Vaccine, 9-Valent 03/16/2023(Deferre d: Patient Refused - pt will make nurse visit appointment to get later) Hepatitis B Vaccine, Recombi nant, Adjuvanted, 20 mcg/mL (Heplisav-B) 03/16/2023 Hepatitis B, 0-19 yrs 10/03/2000,1996,06/02 IPV - Polio Virus Vaccine (Inact) 01/08/1997,,1996 MMR - Measles/Mumps/Rubella Vaccine 07/24/2001,0 10/03/2000 Seasonal Influenza, PF, 6 M & above, IM , (FluLaval or Fluzone) 08/28/2023 TDAP (age 10 and older)(Boostrix) 03/16/2023 TDAP, Age 7 and older, IM (Adacel) 06/16/2008 Varicella Vaccine (Chicken Pox) 06/16/2008 documented as of this encounter Social History Tobacco Use Types Packs/Day Years Used Date Smoking Tobacco: Never Passive Smoke Exposure: Past Smokeless Tobacco: Never Comments:Mother smoked as a child Alcohol Use Standard Drinks/Week Comments Yes 0 (1 standard drink = 0.6 oz pur e alcohol) maybe 1 a month PHQ-2 Answer Date Recorded PHQ Adult Total Score 8 09/04/2023 Hunger Vital Sign Answer Date Recorded Within the past 12 months, y ou worried that your food would run out before you got the money to buy more. Sometimes true Within the past 12 months, t he food you bought just didn't last and you didn't have money to get more. Patient declined Childcare Answer Date Recorded Do you feel overwhelmed with taking care of a child, family member or friend? No 12/17/2023 Does your family need help f inding childcare? (Household - for ages 0-17 years) Not on file 12/17/2023 Clothing Answer Date Recorded Have you been unable to get clothing when it was really needed? Yes 12/17/2023 Is your family able to get c lothes or diapers when needed? (Household - for ages 0-17 years) Not on file 12/17/2023 Personal Safety Answer Date Recorded Do you feel unsafe or have concerns for your saf ety? No 12/17/2023 Do you have concerns for you r family's safety? (Household - for ages 0-17 years) Not on file 12/17/2023 Utilities Answer Date Recorded Do you have trouble paying y our heating, water, or electric bill? No 12/17/2023 Is your family able to pay t he heat, water, or electric bill? (Household - for ages 0-17 years) Not on file 12/17/2023 Does your family have access to good internet? (Household - for ages 0-17 years) Not on file 12/17/2023 Employment Status Answer Date Recorded Are you unemployed or without regular income? No 12/17/2023 [facility] the household have a [facility] source [facility] income? (Household - for ages 0-17 years) Not on file 12/17/2023 Social Connections Answer Date Recorded How often do you feel lonely or isolated from th ose around you? Often 12/17/2023 Financial Resource Strain Answer Date R ecorded Do you have any trouble payi ng for your medications, or do you think you might in the future? No 12/17/2023 Does your family have troubl e paying for medicine? (Household - for ages 0-17 years) Not on file 12/17/2023 Transportation Needs Answer Date Record ed READ ONLY Do you have troubl e getting a ride to medical visits or work? Never True 12/17/2023 Does your family have a hard time getting a ride to doctors visits? (Household - for ages 0-17 years) Not on file 12/17/2023 Has lack of transportation k ept you from medical appointments, meetings, work, or from getting things needed for daily living? Check all that apply. (Adult - for ages 18 years and over) Not on file 12/17/2023 Do you (or your family) have trouble finding or paying for a ride (transportation)? (Household - for ages 0-17 years) Not on file 12/17/2023 Housing Stability Answer Date Recorded Do you currently live in a s helter or have no steady place to sleep at night? No 12/17/2023 READ ONLY Do you think you a re at risk of becoming homeless? No 12/17/2023 Does your family worry about paying for your home or becoming homeless? (Household - for ages 0-17 years) Not on file 0 12/17/2023 Are you homeless or worried that you might be in the future? (Adult - for ages 18 years and over) Not on file Are you (or your family) vicki eless or worried that you might be in the future? (Household - for ages 0-17 years) Not on file Food Insecurity Answer Date Recorded Do you need food for this week? No 12/17/2023 Are you able to get enough f ood for your family? (Household - for ages 0-17 years) Not on file 12/17/2023 Does your family need food t his week? (Household - for ages 0-17 years) Not on file 12/17/2023 Do you always have enough fo od for your family? (Household - for ages 0-17 years) Not on file 12/17/2023 Sex and Gender Information Value Date Recorded Sex Assigned at Male 03/15/2023 3:37 PM EDT Gender Identity Transgender Female 03/15/2023 3: 37 PM EDT Sexual Orientation Bisexual 03/15/2023 3: 37 PM EDT Job Start Date Occupation Industry Not on file Not on file Not on file documented as of this encounter Plan of Treatment Upcoming Encounters Date Type Department Care Team (Late st Contact Info) Description 08/20/2024 3:20 PM EST Telemedicine Family Practice [facility] [address] [place] [address] Ziggy Kahn MD [address] [place] [address] Health Maintenance Due Date Last Done Comments Hepatitis C Screening 2014 COVID-19 Vaccine ( season) 2023 Influenza Vaccine (FLU shot) (#1) 2024 08/28/2023 Depression Monitoring 09/04/2024 09/04/2023 DTaP,Tdap,and Td Vaccines (7 - Td or Tdap) 03/16/2033 03/16/2023, 06/16/2008, 10/03/2000, Additional history exists HIV Screening Completed 12/22/2019 Hepatitis B Vaccine Completed 03/16/2023, 10/03/2000, 1996, Additional history exists HPV (Gardasil) Vaccine Aged Out No lo nger eligible based on patient's age to complete this topic MENINGOCOCCAL (MENACTRA/MENVEO) Aged Out No longer eligible based on patient's age to complete this topic Pneumococcal Vaccine: Pediatrics (0 to 5 Years) and At-Risk Patients (6 to 64 Years) Aged Out No longer eligible based on patient's age to complete this topic documented as of this encounter Medical Devices Not on filedocumented as of this encounter Care Teams Fire Patroller Relationship Specialty Start Date End Date Ziggy Kahn MD [address] [place] [address] PCP - General Family Medicine 05/30/23 documented as of this encounter
--- OUTSIDE RECORDS SUMMARY | 2024-07-31 01:03 | External Medical Summary | Summary of Care ---
Author Name Unknown Organization [facility] Address [address] [place] [address] Phone [phone] Care Team Providers Care Researcher Name Role Phone Ziggy Kahn MD Primary Care Provider + Reason for Referral * Evaluate & Treat - Unlimited Visits (Within 30 days (routine)) - Authorized Specialty Diagnoses / Procedures Referred By Contcameron t Referred To Contact Plastic Surgery Diagnoses [id number] transgender person Ziggy Kahn MD [address] [facility] [place] [address] [address] Opal Jett MD [address] [facility] [address] [place] [address] Referral ID Status Reason Start Date Expiration Date Visits Requested Visits Authorized [id number] Authorized Specialty Services Required 05/19/[phone] Question Answer Referral Priority Within 30 days (routine) Where should this appointment be scheduled? External - [facility] What condition is the patient being seen for? Other conditions Comments For MtoF transgender breast augmentation. Had lost insurance earlier this year, reestablishing Reason for Visit * Reason Comments Follow Up Pt needs meds refill ed and would like to see about a referral for top surgery since has insurance again. Encounter Details Date Type Department Care Team (Latest Contact Info) Description 05/19/2024 10:40 AM EDT Telemedicine Family Practice [facility] [address] [place] [address] Ziggy Kahn MD [address] [place] [address] Ihmj-oc-qkyzlv transgender person*; Malaise and fatigue; Screening examination for STI; Screening for HIV (human immunodeficiency virus); Lipid screening; Gender dysphoria in adult Allergies Active Allergy Reactions Criticality Noted Date Comments Cat Dander Hives Medium 03/16/2023 Dog Dander Hives Medium 03/16/2023 Pollen Other (Please comment) Low 03/16/2023 Nasal congestion documented as of this encounter (statuses as of 05/19/2024) Medications Medication Sig Dispensed Refills Start Date End Date Status Albuterol Sulfate HFA 108 (90 Base) MCG/ACT Inhalation Aerosol SolutionIndicatio ns:Mild intermittent asthma without complication Inhale 2 Puffs by mouth every 6 hours as needed for Cough, Shortness of Breath or Wheezing. 18 g 2 3 Active Escitalopram Oxalate 20 MG Oral Tablet (Lexapro) Take 1 Tablet by mouth in the morning. 1/2 pills for 2 weeks then 1 pill daily.. 30 Tablet 5 4 Active Progesterone 200 MG Oral Capsule (Prometrium)Indic ations:Gender dysphoria in adult Take 1 Capsule by mouth every night at bedtime. 30 Capsule 5 4 Active Spironolactone 100 MG Oral Tablet (Aldactone)Indica tions:Gender dysphoria in adult Take 1 Tablet by mouth in the morning and 1 Tablet before bedtime. 60 Tablet 5 4 Active Estradiol 0.1 MG/24HR Transdermal Patch Twice Weekly (Vivelle-Dot) Apply 3 patches to skin, change twice weekly 24 Patch 5 4 Active Carepoint Syringe Luer Lock 20G X 1" 3 ML (Syringe/Needle (Disp)) Use as directed. 05/19/20 24 Discontinued(Med ication List Clean Up) Hypodermic Needle 23G X 1" Use as directed. 05/19/20 24 Discontinued(Med ication List Clean Up) Progesterone 200 MG Oral Capsule (Prometrium)Indic ations:Gender dysphoria in adult Take 1 Capsule by mouth every night at bedtime. 30 Capsule 5 3 05/19/20 24 Discontinued Estradiol 0.1 MG/24HR Transdermal Patch Twice Weekly (Vivelle-Dot) Apply 3 patches to skin, change twice weekly 24 Patch 5 4 05/19/20 24 Discontinued FLUoxetine HCl 20 MG Oral Capsule (PROzac) Take 1 Capsule by mouth in the morning. 30 Capsule 1 4 05/19/20 24 Discontinued(Med ication List Clean Up) Spironolactone 100 MG Oral Tablet (Aldactone)Indica tions:Gender dysphoria in adult Take 1 Tablet by mouth in the morning and 1 Tablet before bedtime. 60 Tablet 2 4 05/19/20 24 Discontinued documented as of this encounter (statuses as of 05/19/2024) Active Problems Problem Noted Date Diagnosed Date Gender dysphoria in adult 05/29/2023 Major depressive disorder wi th single episode, in partial remission 05/29/2023 Food insecurity 04/09/2023 Overview: Per [facility] Protocol documented as of this encounter (statuses as of 05/19/2024) Immunizations Name Administration Dates Next Due DTaP [...] No 12/17/2023 Does the household have a re gular source of income? (Household - for ages [...] on file documented as of this encounter Progress Notes * Ziggy Kahn MD - 05/19/2024 11:13 AM EDT After connecting to the patient via telephone, the patient was identified by name and date of . Patient was then informed that this was a telephone call only visit. The patient agreed to participate. Visit Disposition: Routine follow-up Total call duration was 18 minutes. SUBJECTIVE: Phillip Harrington is a 28 year old adult here for Follow Up (Pt needs meds refilled and would like to see about a referral for top surgery since has insurance again. ) . AMAB, transgender female on hormones since 2019. Had been on PO (200-300 E) and IM (up to 400-500 E) without much physical changes. 2022 switched from IM estradiol to transdermal patches due to needle phobia. Otherwise gender dysphoria overall improved on meds. She is frustrated by the lack of breast growth and so met with Dr. Opal Jett in August 2023 for evaluation of breast augmentation. Unfortunately patient then lost insurance and so this was postpone. She does have a new job with insurance through Medicaid and so would like to revisit surgery with Dr. Jett. She also has ongoing some depression symptoms. Had switched from Lexapro 20 mg to fluoxetine. Fluoxetine was not any better for energy as patient remains tired so was not as effective as well as Lexapro so she would like to return to Lexapro today. No fever, chills, chest pain, shortness of breath, headache, nausea, vomit, diarrhea, constipation or vision changes Physical: There were no vitals taken for this visit. Neuro-alert & oriented x3 Psych-mood down , fatigue, normal affect +gender dysphoria improved on meds no SI/HI I/j-good (Z78.9) Tfxz-ep-pjakvg transgender person (primary encounter diagnosis) Plan: PLASTIC SURGERY REFERRAL OP, BASIC METABOLIC PANEL, ESTRADIOL, TESTOSTERONE, TOTAL Niurka labs on meds. Goal 100-200 estradiol Pt would like to restart progesterone for dysphoria as well Counseled on use, risk, benefits, and alternatives of medications. Questions answered, patient expressed understanding. -consider restart therapy/psychiatry (R53.81, R53.83) Malaise and fatigue Plan: CBC WITH WBC DIFFERENTIAL AND ANEMIA REFLEX WORKUP, FERRITIN, VITAMIN B12, TSH WITH FREE T4 IF INDICATED, BASIC METABOLIC PANEL (Z11.3) Screening examination for STI Plan: SYPHILIS ANTIBODY SCREEN WITH REFLEX TO RPR, CHLAMYDIA TRACHOMATIS AND NEISSERIA GONORRHOEAE, AMPLIFIED PROBE (Z11.4) Screening for HIV (human immunodeficiency virus) Plan: HIV ANTIGEN & ANTIBODY SCREEN W/ CONFIRMATION (Z13.220) Lipid screening Plan: LIPID PANEL WITH DIRECT LDL IF TG IS HIGH (F64.0) Gender dysphoria in adult Plan: Progesterone 200 MG Oral Capsule (Prometrium), Spironolactone 100 MG Oral Tablet (Aldactone) (This note was completed using the dictation program Fluency Direct. As such, there may be misspellings, word substitutions, or other variations that should not change the essence of the clinical content of this encounter note.If there is need for further clarification, please direct questions to the provider listed above.) Ziggy Kahn MD documented in this encounter Plan of Treatment Scheduled Orders Name Type Priority Associated Diagnoses Orde r Schedule CBC WITH WBC DIFFERENTIAL AND ANEMIA REFLEX WORKUP Lab Routine Malaise and fatigue Expected: 05/19/2024 (Approximate), Expires: 05/19/2025 FERRITIN Lab Routine Malaise and fatigue Expected: 05/19/2024 (Approximate), Expires: 05/19/2025 VITAMIN B12 Lab Routine Malaise and fatigue Expected: 05/19/2024 (Approximate), Expires: 05/19/2025 TSH WITH FREE T4 IF INDICATED Lab Routine Malaise and fatigue Expected: 05/19/2024 (Approximate), Expires: 05/19/2025 BASIC METABOLIC PANEL Lab Routine Aaht-wp-isciga transgender person Malaise and fatigue Expected: 05/19/2024 (Approximate), Expires: 05/19/2025 LIPID PANEL WITH DIRECT LDL IF TG IS HIGH Lab Routine Lipid screening Expected: 05/19/2024, Expires: 05/19/2025 ESTRADIOL Lab Routine Earf-ns-gzotab transgender person Expected: 05/19/2024 (Approximate), Expires: 05/19/2025 TESTOSTERONE, TOTAL Lab Routine Nblf-ok-gikzuf transgender person Expected: 05/19/2024 (Approximate), Expires: 05/19/2025 HIV ANTIGEN & ANTIBODY SCREEN W/ CONFIRMATION Lab Routine Screening for HIV (human immunodeficiency virus) Expected: 05/19/2024 (Approximate), Expires: 05/19/2025 SYPHILIS ANTIBODY SCREEN WITH REFLEX TO RPR Lab Routine Screening examination for STI Expected: 05/19/2024 (Approximate), Expires: 05/19/2025 CHLAMYDIA TRACHOMATIS AND NEISSERIA GONORRHOEAE, AMPLIFIED PROBE Lab Routine Screening examination for STI Expected: 05/19/2024, Expires: 05/19/2025 Scheduled Referrals Name Type Priority Associated Diagnoses Orde r Schedule PLASTIC SURGERY REFERRAL OP Referral Within 30 days (routine) Srxv-lq-jiqxfc transgender person Ordered: 05/19/2024 Health Maintenance Due Date Last Done Comments [...] Not on filedocumented as of this encounter Visit Diagnoses Diagnosis Bxyw-uq-tzympd transgender person- Primary Malaise and fatigue Other malaise and fatigue Screening examination for STI Screening for HIV (human immunodeficiency virus) Special screening examination for other specified viral diseases Lipid screening Screening for lipoid disorders Gender dysphoria in adult documented in this encounter Care Teams Researcher Relationship Specialty Start Date End Date Ziggy Kahn MD [address] [place] [address] PCP - General Family Medicine 05/30/23 documented as of this encounter
--- OUTSIDE RECORDS SUMMARY | 2024-07-31 01:03 | External Medical Summary | Summary of Care ---
Author Name Unknown Organization [facility] Address [address] [facility] [place] [address] Phone [phone] Care Team Providers Care Food Safety Manager Name Role Phone Ziggy Kahn MD Primary Care Provider + Reason for Visit * Reason Onset Date Comments Medication Refill 06/25/2024 Encounter Details Date Type Department Care Team (Late st Contact Info) Description 06/25/2024 Refill Family Practice [facility] [address] [place] [address] Ziggy Kahn MD [address] [place] [address] Major depressive disorder with single episode, in partial remission ([facility])* Allergies Active Allergy Reactions Criticality Noted Date Comments Cat Dander Hives Medium 03/16/2023 Dog Dander Hives Medium 03/16/2023 Pollen Other (Please comment) Low 03/16/2023 Nasal congestion documented as of this encounter (statuses as of 06/26/2024) Medications Medication Sig Dispensed Refills Start Date End Date Status Albuterol Sulfate HFA 108 (90 Base) MCG/ACT Inhalation Aerosol SolutionIndication s:Mild intermittent asthma without complication Inhale 2 Puffs by mouth every 6 hours as needed for Cough, Shortness of Breath or Wheezing. 18 g 2 03/16/2023 Active Progesterone 200 MG Oral Capsule (Prometrium)Indica tions:Gender dysphoria in adult Take 1 Capsule by mouth every night at bedtime. 30 Capsule 5 05/19/2024 Active Spironolactone 100 MG Oral Tablet (Aldactone)Indicat ions:Gender dysphoria in adult Take 1 Tablet by mouth in the morning and 1 Tablet before bedtime. 60 Tablet 5 05/19/2024 Active Estradiol 0.1 MG/24HR Transdermal Patch Twice Weekly (Vivelle-Dot) Apply 3 patches to skin, change twice weekly 24 Patch 5 05/19/2024 Active Escitalopram Oxalate 20 MG Oral Tablet (Lexapro)Indicatio ns:Major depressive disorder with single episode, in partial remission (HCC) Take 1 Tablet by mouth in the morning. 90 Tablet 3 06/26/2024 Active Escitalopram Oxalate 20 MG Oral Tablet (Lexapro) Take 1 Tablet by mouth in the morning. 1/2 pills for 2 weeks then 1 pill daily.. 30 Tablet 5 05/19/2024 Discontinue d(Refill) documented as of this encounter (statuses as of 06/26/2024) Active Problems Problem Noted Date Diagnosed Date Gender dysphoria in adult 05/29/2023 Major depressive disorder wi th single episode, in partial remission 05/29/2023 Food insecurity 04/09/2023 Overview: Per [facility] Protocol documented as of this encounter (statuses as of 06/26/2024) Immunizations Name Administration Dates Next Due DTaP Dipth/Tet/Acell Pertussis (Infanrix), Peds 10/03/2000,01/08/1997,1996, 996 HEPATITIS B VACCINE, RECOMB, 20 MCG/ML, ADULT (HEPLISAV-B) 03/16/2023 HPV Vaccine, 9-Valent 03/16/2023(Deferre d: Patient Refused - pt will make nurse visit appointment to get later) Hepatitis B, 0-19 yrs 10/03/2000,1996,0910/1995 IPV - Polio Virus Vaccine (Inact) 01/08/1997,,1996 [...] on file documented as of this encounter Miscellaneous Notes * Telephone Encounter - Roxanne Nichols CRNP - 06/26/2024 12:51 PM EDTSigned Prescriptions: Disp Refills Escitalopram Oxalate 20 MG Oral Tablet (Le*90 Tab*3 Sig: Take 1 Tablet by mouth in the morning. Authorizing Provider: ROXANNE NICHOLS * Telephone Encounter - Darshana Lockett LPN - 06/25/2024 3:40 PM EDT Pending Prescriptions: Disp Refills Escitalopram Oxalate 20 MG Oral Tablet (L*90 Tab*3 Sig: Take 1 Tablet by mouth in the morning. Last Visit: 08/28/2023 (in office), 05/19/2024 (telemedicine) Next Visit: 08/20/2024 Last date the medication was ordered: 05/19/24 Patient Active Problem List Diagnosis Food insecurity Gender dysphoria in adult Major depressive disorder with single episode, in partial remission ([facility]) Labs: Lab Results Component Value Date/Time CREATININE - [facility] 0.8 08/24/2023 10:45 AM Lab Results Component Value Date/Time POTASSIUM - [facility] 4.2 08/24/2023 10:45 AM No results found for: "TSH" No results found for: "LDL" No results found for: "ALT" Hemoglobin AIC Results: No results found for: "HEMOGLOBIN A1C" documented in this encounter Plan of Treatment Upcoming Encounters Date Type Department Care Team (Late st Contact Info) Description 08/20/2024 3:20 PM EST Telemedicine Family Practice [facility] [address] [address] Ziggy Kahn MD [address] [place] [address] Health Maintenance Due Date Last Done Comments Hepatitis C Screening 2014 COVID-19 Vaccine ( season) 2024 Influenza Vaccine (FLU shot) (#1) 2024 08/28/2023 Depression Monitoring 09/04/2024 09/04/2023 DTap/Tdap Vaccines (7 - Td or Tdap) 03/16/2033 [...] as of this encounter Visit Diagnoses Diagnosis Major depressive disorder with single episode, in partial remission (HCC)- Primary documented in this encounter Care Teams Food Safety Manager Relationship Specialty Start Date End Date Ziggy Kahn MD [address] [place] [address] PCP - General Family Medicine 05/30/23 documented as of this encounter
--- OUTSIDE RECORDS SUMMARY | 2024-07-31 01:03 | External Medical Summary | Summary of Care ---
Author Name Unknown Organization [facility] Address [address] [facility] [place] [address] Phone [phone] Care Team Providers Care Sales Porter Name Role Phone Ziggy Hernandez MD Primary Care Provider + Reason for Visit * Reason Onset Date Comments Medication Refill 03/03/2024 Encounter Details Date Type Department Care Team (Late st Contact Info) Description 03/03/2024 Refill Family [facility] [address] [place] [id number] Ziggy Hernandez MD [address] [place] [address] Gender dysphoria in adult Allergies Active Allergy Reactions Criticality Noted Date Comments Cat Dander Hives Medium 03/16/2023 Dog Dander Hives Medium 03/16/2023 Pollen Other (Please comment) Low 03/16/2023 Nasal congestion documented as of this encounter (statuses as of 03/05/2024) Medications Medication Sig Dispensed Refills Start Date End Date Status Carepoint Syringe Luer Lock 20G X 1" 3 ML (Syringe/Needle (Disp)) Use as directed. Active Hypodermic Needle 23G X 1" Use as directed. Active Albuterol Sulfate HFA 108 (90 Base) MCG/ACT Inhalation Aerosol SolutionIndication s:Mild intermittent asthma without complication Inhale 2 Puffs by mouth every 6 hours as needed for Cough, Shortness of Breath or Wheezing. 18 g 2 03/16/2023 Active Progesterone 200 MG Oral Capsule (Prometrium)Indica tions:Gender dysphoria in adult Take 1 Capsule by mouth every night at bedtime. 30 Capsule 5 05/29/2023 Active Estradiol 0.1 MG/24HR Transdermal Patch Twice Weekly (Vivelle-Dot) Apply 3 patches to skin, change twice weekly 24 Patch 5 11/27/2023 Active FLUoxetine HCl 20 MG Oral Capsule (PROzac) Take 1 Capsule by mouth in the morning. 30 Capsule 1 12/17/2023 Active Spironolactone 100 MG Oral Tablet (Aldactone)Indicat ions:Gender dysphoria in adult Take 1 Tablet by mouth in the morning and 1 Tablet before bedtime. 60 Tablet 2 03/05/2024 Active Spironolactone 100 MG Oral Tablet (Aldactone)Indicat ions:Gender dysphoria in adult TAKE 1 TABLET BY MOUTH IN THE MORNING AND BEFORE BEDTIME 60 Tablet 2 02/01/2024 Discontinue d(Refill) documented as of this encounter (statuses as of 03/05/2024) Active Problems Problem Noted Date Diagnosed Date Gender dysphoria in adult 05/29/2023 Major depressive disorder wi th single episode, in partial remission 05/29/2023 Food insecurity 04/09/2023 Overview: Per [facility] Protocol documented as of this encounter (statuses as of 03/05/2024) Immunizations Name Administration Dates Next Due DTaP [...] have money to get more. Patient declined Sex and Gender Information Value Date Recorded Sex Assigned at Male 03/15/2023 3:37 PM EDT Gender Identity Transgender Female 03/15/2023 3: 37 PM EDT Sexual Orientation Bisexual 03/15/2023 3: 37 PM EDT Job Start Date Occupation Industry Not on file Not on file Not on file documented as of this encounter Miscellaneous Notes * Telephone Encounter - Ziggy Hernandez MD - 03/05/2024 9:57 AM EDTSigned Prescriptions: Disp Refills Spironolactone 100 MG Oral Tablet (Aldacto*60 Tab*2 Sig: Take 1 Tablet by mouth in the morning and 1 Tablet before bedtime. Authorizing Provider: ZIGGY HERNANDEZ * Telephone Encounter - Symone Lin LPN - 03/04/2024 7:28 AM EDTPending Prescriptions: Disp Refills Spironolactone 100 MG Oral Tablet (Aldacto*60 Tab*2 * Telephone Encounter - Jennifer Johnson OSA - 03/03/2024 5:37 PM EDT Did you pend patient's preferred pharmacy and medication before forwarding?yes Pharmacy: [id number] [address] Pending Prescriptions: Disp Refills Spironolactone 100 MG Oral Tablet (Aldact*60 Tab*2 Last Visit: 08/28/2023 (in office), Visit date not found (telemedicine) Next Visit: Visit date not found If no future appointments scheduled, and last appointment is greater than a year ago, please schedule patient for a follow-up appointment Last date the medication was ordered: 5.3.24 Is this request for a controlled substance?No 90 day refill request Urine Drug Screen:No results found for this or any previous visit. Patient Phone Numbers Labs: Lab Results Component Value Date/Time CREAT 0.8 08/24/2023 10:45 AM POTASSIUM 4.2 08/24/2023 10:45 AM documented in this encounter Plan of Treatment Health Maintenance Due Date Last Done Comments Pneumococcal Vaccine: Pediatrics (0 to 5 Years) and At-Risk Patients (6 to 64 Years) (1 of 2 - PCV) 2002 Hepatitis C Screening 2014 COVID-19 Vaccine (1 - 2022-24 season) 2023 DTaP,Tdap,and Td Vaccines (7 - Td or Tdap) 03/16/2033 03/16/2023, 06/16/2008, 10/03/2000, Additional history exists HIV Screening Completed 12/22/2019 Hepatitis B Completed 03/16/2023, 11/2000, 1996, Additional history exists Influenza Vaccine (FLU shot) Completed 08/28/2023 GARDASIL-HPV IMMUNIZATION SERIES Aged Out No longer eligible based on patient's age to complete this topic MENINGOCOCCAL (MENACTRA/MENVEO) Aged Out No longer eligible based on patient's age to complete this topic documented as of this encounter Medical Devices Not on filedocumented as of this encounter Visit Diagnoses Diagnosis Gender dysphoria in adult documented in this encounter Care Teams Sales Porter Relationship Specialty Start Date End Date Ziggy Hernandez MD [address] [place] [address] PCP - General Family Medicine 05/30/23 documented as of this encounter
--- OUTSIDE RECORDS SUMMARY | 2024-07-31 01:03 | External Medical Summary | Summary of Care ---
Author Name Unknown Organization [facility] Address [address] [facility] [place] [address] Phone [phone] Care Team Providers Care Cue Selector Name Role Phone Ziggy Kahn MD Primary Care Provider + Reason for Visit * Reason Onset Date Comments Medication Problem 02/12/2024 Encounter Details Date Type Department Care Team (Late st Contact Info) Description 02/12/2024 Telephone Family Practice [facility] [address] [place] [address] Ziggy Kahn MD [address] [place] [id number] Medication Problem Allergies Active Allergy Reactions Criticality Noted Date Comments Cat Dander Hives Medium 03/16/2023 Dog Dander Hives Medium 03/16/2023 Pollen Other (Please comment) Low 03/16/2023 Nasal congestion documented as of this encounter (statuses as of 02/20/2024) Medications Medication Sig Dispensed Refills Start Date [...] 03/16/2023 Active Progesterone 200 MG Oral Capsule (Prometrium)Indicati [...] 12/17/2023 Active Spironolactone 100 MG Oral Tablet (Aldactone)Indicatio ns:Gender dysphoria in adult TAKE 1 TABLET BY MOUTH IN THE MORNING AND BEFORE BEDTIME 60 Tablet 2 02/01/2024 Active documented as of this encounter (statuses as of 02/20/2024) Active Problems Problem Noted Date Diagnosed Date Gender dysphoria in adult 05/29/2023 Major depressive disorder wi th single episode, in partial remission 05/29/2023 Food insecurity 04/09/2023 Overview: Per [facility] Protocol documented as of this encounter (statuses as of 02/20/2024) Immunizations Name Administration Dates Next Due DTaP [...] 08/28/2023 TDAP (age 10 and older)(Boostrix) 03/16/2023 TDAP (age 11 and older)(Adacel) 06/16/2008 Varicella Vaccine (Chicken Pox) 06/16/2008 documented [...] encounter Miscellaneous Notes * Telephone Encounter - Darshana Lockett LPN - 02/20/2024 10:32 AM EDT Called and spoke with pharmacist. He states the medication was filled. Nothing further required. * Telephone Encounter - Jnenifer Johnson OSA - 02/12/2024 3:26 PM EDT Alternative request is sent for medication estradiol pa is required for dose documented in this encounter Plan of Treatment Health Maintenance Due Date Last Done Comments Pneumococcal Vaccine: Pediatrics (0 to 5 Years) and At-Risk Patients (6 to 64 Years) (1 of 2 - PCV) 2002 Hepatitis C Screening 2014 COVID-19 Vaccine (1 - 2022- season) 2023 DTaP,Tdap,and Td Vaccines (7 - [...] filedocumented as of this encounter Care Teams Cue Selector Relationship Specialty Start Date End Date Ziggy Kahn MD [address] [place] [address] PCP - General Family Medicine 05/30/23 documented as of this encounter
[2024-07-31 01:24] LABS: Thyroid Stimulating Hormone 1.104 uIu/ml (0.300-4.500)
[2024-07-31] MEDS ORDERED: SODIUM CHLORIDE 0.65% NA SOLN 45 ML (OCEAN) PRN (03:08)
[2024-07-31] MEDS ORDERED: BISMUTH SUBSALICYLATE 262 MG CHEW PO PRN (03:08)
[2024-07-31] MEDS ORDERED: ALUMINUM/MAGNESIUM SUSP 30 ML UDC PO PRN (03:08)
[2024-07-31] MEDS ORDERED: MAGNESIUM HYDROXIDE SUSP 30 ML UDC PO PRN (03:08)
[2024-07-31] MEDS: hydrOXYzine HCl 25 MG TAB PO PRN ×2 (03:22→22:07)
[2024-07-31] MEDS ORDERED: NICOTINE POLACRILEX 2 MG GUM MT PRN (03:31)
[2024-07-31] MEDS ORDERED: PNEUMOCOCCAL VACCINE (PCV20) 20-VAL CONJ-DIP CRM/PF 0.5 ML SYR IM ONE (08:00)
--- NOTE | 2024-07-31 08:53 | History & Physical ---
Date of Service July 31, 2024 Impression / Recommendations Impression Julieth HAIDER is a 29-year-old woman who currently lives in [place], has a history of gender dysphoria, major depression, and was admitted on 07/31/24 03:08 on a 201 voluntary commitment for suicide attempt and ongoing SI with plans. Diagnostically consistent with likely gender dysphoria and major depressive disorder with anxious distress vs persistent depressive disorder as well as STANTON, social anxiety and may be cluster B or trauma component as well. Discussed medication treatment options in detail. Discussed risks, benefits and alternatives. Patient would like to start and consented to sertraline and mirtazapine for MDD/STANTON and propranolol 10mg BID prn as off-label use for panic attacks/social anxiety. Reviewed side effects including but not limited to: GI, OBRIEN, sexual side effects as well as sedation/increased appetite with mirtazapine and syncope/low BP with propranolol. MNPR-gender diverse Overall I spent a total of 75 minutes for this admission including review of chart records, review of labwork, direct evaluation of the patient, counseling the patient, ordering medication, risk assessment, discussion with the psychiatric liason RN and documentation in the electronic health record. (1) Depression with suicidal ideation: (2) Suicide attempt by carbon monoxide poisoning: (3) Gender dysphoria: (4) Major depression, recurrent: (5) Generalized anxiety disorder with panic attacks: (6) Social anxiety disorder: Plan 07/31/2024: The patient was admitted to the [facility] on q15 min checks (behavioral with suicide precautions) for safety. The patient will participate in group, recreational, and milieu therapies and will be offered additional individual and family sessions as clinically appropriate. -Discontinue escitalopram -Start sertraline 50mg daily -Start mirtazapine 15mg HS -Start propranolol 10mg BID prn -Discussed possibility to explore larger center for transgender medicine/gender affirming care as she wishes to learn more about potential gender affirming surgery and other potential interventions Inventory Assets Strengths: supportive relationships, willing to get treatment Needs: safety and stabilization, medication adjustment, additional coping skills, increased outpatient services Suicide Risk Level Suicide Risk Level: High-Moderate (q15 min suicide checks) (s/p suicide attempt, ongoing SI with plan and depression but feels safe in the hospital and feels able to ask for support ) Risk Factors Assessment : Yes Do You Have Access To A Gun?: No Mental Health Diagnoses: Yes Previous Attempt: Yes Previous Psychiatric Hospitalization: Yes Hopelessness: Yes Protective Factors Assessment Employed: Yes ([employer]) Stable Relationships: Yes Supportive Family: No Psychiatric History Identifying Data Julieth HAIDER is a 29-year-old woman who currently lives in [place], has a history of gender dysphoria, major depression, and was admitted on 07/31/24 03:08 on a 201 voluntary commitment for suicide attempt and ongoing SI with plans. Chief Complaint "Honestly I'd rather just not be alive but I thought I'd come in here and see if there's another option". History of Present Illness She presents for psychiatric admission for worsening depression and suicide attempt via carbon monoxide poisoning on Sunday (after researching how to do it) and then ongoing SI with plans of "trying to find something that would work like something that is quick and that I can't turn back on after I've started" in the context of multiple psychosocial stressors including building up of "miserable in my body and brain and pretty much every aspect of my life except very small things like cuddling with my cats". She finds that crying or getting "really really high" with cannabis can help briefly. She feels that "I'll be put on track by people and then I'll fall off track on my own". She feels that when she reaches out she gets help and things are "fine for a little while but then I'm on my own again and can't keep asking people for help". She continues to have significant gender dysphoria despite hormone therapy and identifies very severe body dysmorphia. She identifies having really bad social anxiety, "anxious all the time", struggles to make eye contact and causes panic attacks (typically a few times per year). She identifies severe depression including social isolation, hopelessness, lack of motivation, significant anhedonia, worthlessness, "I don't see a future at all for myself at this point, I have no goals, aspirations or anything at this point", sleep has been ok but poor quality and very low energy throughout the day, appetite has been variable (not eating much recently, has unintentionally lost weight). She is currently prescribed escitalopram (has been on this for a few months, has been on 20mg dose for about 1.5 months). She wants to try something else, wants to re-trial sertraline. Psychiatric ROS notable for history of "delusions that are definitely not true", feels this has been going on for a long time but she doesn't feel comfortable discussing this but reports "I'm prone to believing things that aren't true as a means of escaping what my reality really is". No current nor history of symptoms of rekha, OCD nor eating disorder. History of possible PTSD, hair pulling and punching self in the past. Past Psychiatric History Current Psychiatric Diagnosis: "I don't recall" Outpatient Services: none Previous Psych Admissions: [facility] May 2023 Do You Have Access To A Gun?: No History of Previous Suicide Attempt: Yes Past Medication Trials: -sertraline 2.5 years ago but caused panic attacks -no hx of SNRI (mother had bad rxn to Cymbalta) Allergies Allergy/AdvReac Type Severity Reaction Status Date / Time cat dander Allergy Mild Unverified 05/11/23 17:27 dog dander Allergy Mild Unverified 05/11/23 17:27 Home Medications Medication Instructions Recorded Confirmed Type spironolactone 100 mg tablet 100 mg PO BID 05/11/23 07/30/24 History escitalopram oxalate 20 mg tablet 20 mg PO 1XD 07/30/24 07/30/24 History estradiol 0.1 mg/24 hr semiweekly 3 patch transdermal 2XWK 07/30/24 07/30/24 History transdermal patch progesterone micronized 200 mg 200 mg PO HS 07/30/24 07/30/24 History capsule Family History Family History of: Depression, Suicide Attempts and Doesn't Know Family Mental Health History Comment: Mother had a suicide attempt Alcohol History Hx of Alcohol Use Over the Past 12 Months: No AUDIT Total Score: 0 Smoking Use Have You Smoked or Used Tobacco Products in the Last 30 Days: Yes tobacco type: cigarettes and e-cigarettes Smoking Status: Current every day smoker Smoking packs per day: 2 Substance History Hx of Prescription Med Misuse Over the Past 12 Months: No Hx of Over the Counter Med Misuse Over the Past 12 Months: No Hx of Inhalent Misuse Over the Past 12 Months: No Hx of Organic Substance Use Over the Past 12 Months: Yes (THC) Hx of Illegal Substances/Street Drug Use Over Past 12 Months: No Problems as a Result of Past Substance Use: None Identified Personal History Living Arrangements: Apartment 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 Marital Status: Single Beliefs That Will Affect Care: None Hx Traumatic Life Events: Yes Patient History Medical History Gender dysphoria Suicide attempt by alcohol poisoning Family History Other Congestive heart failure Social History Smoking Status: Current every day smoker Tobacco Type: E-cigarettes / Vaping Preferred Language: Korean Communication Ability: Effective Car Rental Service Attendant Required: No Beliefs That Will Affect Care: None Feels Safe at Home: Yes Gender Identity: Transgender Male Assistive Devices: Contacts and Glasses Review of Systems Review of Systems: All systems reviewed & are unremarkable except as noted in HPI & below Physical Exam Psychiatric: Orientation: alert and oriented x 3 Apperance: appropriately dressed and appropriately groomed Eye Contact: + fair eye contact Motor Behavior: no abnormal motor movements Speech: normal rate/rhythm/volume of speech Affect: + depressed affect Mood: + depressed mood and + anxious mood Thought Process: goal directed thought process Thought Content: reality based without delusions, + hopelessness, + worthlessness and + loneliness Suicidal Thoughts: denies suicidal plan (none for hospital, s/p attempt) and denies suicidal intent; + reports suicidal thoughts Homicidal Thoughts: denies homicidal thoughts Hallucinations: no auditory hallucinations and no visual hallucinations Cognition: recent memory grossly intact, remote memory grossly intact, attention grossly intact and language grossly intact Estimated Intelligence: consistent with education level Insight: + limited insight Judgment: + limited judgement Vital Signs (Past 24 Hours): Last Vital Signs Temp 36.6 C 07/31/24 04:08 Pulse 88 07/31/24 04:08 Resp 16 07/31/24 04:08 BP 136/88 07/31/24 04:08 Pulse Ox 99 07/31/24 04:08 O2 Del Method Room Air 07/31/24 04:08 Exam Statement: A physical exam was performed in the ED by Dr. Ignacio for the purposes of medical clearance. I accept that physical as correct and adequate for the purposes of the inpatient physical exam. Results & Data ([facility]) Laboratory Results Laboratory Results - last 24 hr 07/30/24 07/30/24 21:23 22:45 WBC 10.26 RBC 4.74 Hgb 15.1 Hct 42.8 MCV 90.3 MCH 31.9 MCHC 35.3 RDW Std Deviation 38.9 RDW Coeff of Monica 11.8 Plt Count 344 MPV 10.1 Immature Gran % (Auto) 0.3 Neut % (Auto) 69.1 Lymph % (Auto) 20.5 Lane % (Auto) 7.8 Eos % (Auto) 1.7 Baso % (Auto) 0.6 Neut # (Auto) 7.10 H Lymph # (Auto) 2.10 Lane # (Auto) 0.80 H Eos # (Auto) 0.17 Baso # (Auto) 0.06 Immature Gran # (Auto) 0.03 Carboxyhemoglobin 0.5 Sodium 139 Potassium 3.4 L Chloride 104 Carbon Dioxide 27 Anion Gap 8 BUN 9 Creatinine 0.99 Est Cr Clr Drug Dosing 86.6 eGFR 106.41 BUN/Creatinine Ratio 9.1 L Glucose 50 L* POC Glucose 84 Calcium 9.8 Total Bilirubin 0.7 AST 21 ALT 16 Alkaline Phosphatase 54 Total Protein 7.7 Albumin 4.8 Globulin 2.9 Albumin/Globulin Ratio 1.7 TSH 1.104 Urine Color Dark Yellow Urine Appearance Clear Urine pH 5.5 Ur Specific [place] 1.029 Urine Protein Negative Urine Glucose (UA) Negative Urine Ketones Trace H Urine Blood Negative Urine Nitrite Negative Urine Bilirubin 1+ H Urine Urobilinogen Negative Ur Leukocyte Esterase Negative Salicylates < 3.0 L Urine Opiates Screen Neg Ur Methadone, Qual Neg Urine Fentanyl Screen Neg Acetaminophen < 3 L Urine Barbiturates Neg Ur Phencyclidine (PCP) Neg U Amphetamin/Meth Scrn Neg MDMA (Ecstasy) Screen Neg U Benzodiazepines Scrn Neg Ur Cocaine Metabolite Neg U Marijuana (THC) Screen Pos H U Marijuana THC Carboxy Pending Drug Screen Comment Pending Ethyl Alcohol mg/dL < 10.0 SARS-CoV-2, RNA, NAAT NEGATIVE Current Inpatient Medications Current Inpatient Medications: Current Inpatient Medications Acetaminophen (Acetaminophen 325 Mg Tab) 650 mg PO Q4H PRN PRN Reason: Headache or Minor Fever Stop: 08/30/24 03:07 Al Hydrox/Mg Hydrox/Simethicone (Aluminum/Magnesium Susp 30 Ml Udc) 30 ml PO Q4H PRN PRN Reason: GI Upset Stop: 08/30/24 03:07 Bismuth Subsalicylate (Bismuth Subsalicylate 262 Mg Chew) 2 tab PO Q30M PRN PRN Reason: Loose Stool/Diarrhea Stop: 08/30/24 03:07 Escitalopram Oxalate (Escitalopram Oxalate 20 Mg Tab) 20 mg PO QAM [facility] Stop: 08/30/24 08:59 Hydroxyzine HCl (Hydroxyzine Hcl 25 Mg Tab) 50 mg PO HSZ PRN PRN Reason: Insomnia Stop: 08/30/24 03:07 Hydroxyzine HCl (Hydroxyzine Hcl 25 Mg Tab) 25 mg PO Q4H PRN PRN Reason: Anxiety Stop: 08/30/24 03:07 Last Admin: 07/31/24 03:22 Dose: 25 mg Magnesium Hydroxide (Magnesium Hydroxide Susp 30 Ml Udc) 30 ml PO DAILY PRN PRN Reason: Constipation Stop: 08/30/24 03:07 Miscellaneous (Remove Nicoderm Patch) 1 each N/A DAILY@0859 [facility] Stop: 08/30/24 08:58 Nicotine (Nicotine 21 Mg/24 Hr Tdsy) [facility] Stop: 08/30/24 08:59 Nicotine Polacrilex (Nicotine Polacrilex 2 Mg Gum) 2 piece MT PRN PRN PRN Reason: Nicotine Withdrawal Symptoms Stop: 08/30/24 03:30 Sodium Chloride (Sodium Chloride 0.65% Na Soln 45 Ml ([place])) 1 - 2 sprays NA PRN PRN PRN Reason: Nasal Dryness/Congestion Stop: 08/30/24 03:07 Spironolactone (Spironolactone 100 Mg Tab) 100 mg PO BID17 [facility] Stop: 08/30/24 08:59
[2024-07-31] MEDS: SPIRONOLACTONE 100 MG TAB PO SCH ×2 (09:00→22:02)
[2024-07-31] MEDS: ESCITALOPRAM OXALATE 20 MG TAB PO SCH (09:00)
[2024-07-31] MEDS: NICOTINE 21 MG/24 HR TDSY TD SCH (09:00)
[2024-07-31] MEDS: INFLUENZA VACC TS2024-25(6m+)/PF (IIV3) 0.5mL Syr IM ONE (10:15)
[2024-07-31] MEDS ORDERED: ESCITALOPRAM OXALATE 20 MG TAB PO SCH (15:00)
[2024-07-31] MEDS ORDERED: ESTRADIOL 0.1 MG/24hrs TDSY TD SCH (16:30)
[2024-07-31] MEDS: REMOVE SCH ×2 (17:11→23:43)
[2024-07-31] MEDS: ESTRADIOL 0.1 MG/24hrs TDSY TD SCH (17:12)
[2024-07-31] MEDS: MIRTAZAPINE TAB 15 MG TAB PO SCH (22:03)
--- NOTE | 2024-08-01 08:56 | Psychiatric Progress Note ---
Date of Service August 01, 2024 Impression / Recommendations Impression Julieth HAIDER is a 29-year-old woman who currently lives in [place], has a history of gender dysphoria, major depression, and was admitted on 07/31/24 03:08 on a 201 voluntary commitment for suicide attempt and ongoing SI with plans. Diagnostically consistent with likely gender dysphoria and major depressive disorder with anxious distress vs persistent depressive disorder as well as STANTON, social anxiety and may be cluster B or trauma component as well. A: Ongoing depression with SI, some help seeking/help rejecting but accepting and feeling more hopeful about possibility additional resources and supports and wants to try to find more hopefulness. Tolerating medications so far. MNPR-gender diverse Overall, I spent a total of 45 minutes on this case including meeting with the patient, reviewing the chart, nursing report, multidisciplinary team meeting, orders, and documentation. (1) Depression with suicidal ideation: (2) Suicide attempt by carbon monoxide poisoning: (3) Gender dysphoria: (4) Major depression, recurrent: (5) Generalized anxiety disorder with panic attacks: (6) Social anxiety disorder: Plan 08/01/2024: Continue current medications and tx plan. Provided with Anupam BPD screen. 07/31/2024: The patient was admitted to the [facility] ([facility]) on q15 min checks (behavioral with suicide precautions) for safety. The patient will participate in group, recreational, and milieu therapies and will be offered additional individual and family sessions as clinically appropriate. -Discontinue escitalopram -Start sertraline 50mg daily -Start mirtazapine 15mg HS -Start propranolol 10mg BID prn -Discussed possibility to explore larger center for transgender medicine/gender affirming care as she wishes to learn more about potential gender affirming surgery and other potential interventions Inventory Assets Strengths: supportive relationships, willing to get treatment Needs: safety and stabilization, medication adjustment, additional coping skills, increased outpatient services Suicide Risk Level Suicide Risk Level: High-Moderate (q15 min suicide checks) (s/p suicide attempt, ongoing SI with plan and depression but feels safe in the hospital and feels able to ask for support ) Suicide Risk Level Comments: Risk Factors Assessment : Yes Do You Have Access To A Gun?: No Mental Health Diagnoses: Yes Previous Attempt: Yes Previous Psychiatric Hospitalization: Yes Hopelessness: Yes Protective Factors Assessment Employed: Yes ([employer]) Stable Relationships: Yes Supportive Family: No Interval History Identifying Information Julieth HAIDER is a 29-year-old woman who currently lives in [place], has a history of gender dysphoria, major depression, and was admitted on 07/31/24 03:08 on a 201 voluntary commitment for suicide attempt and ongoing SI with plans. Chief Complaint "I'm kind of in a bad mood". Review of Systems Sleep Information Total Hours of Sleep: 6.5 Sleep Comments: PRN Vistaril at 0322 Meal Information Percent Meal Consumed - Breakfast: 50 Percent Meal Consumed - Lunch: 100 Percent Meal Consumed - Dinner: 100 Subjective Subjective Patient was seen & assessed and interval progress reviewed with treatment team nursing and social work. Attended groups. Interacted with peers. Appears uncomfortable when discussing herself in groups. Today reports low mood, increased irritability. She reports having SI "all morning" and wonders if "I shouldn't have come here" as wishes she were . However is able to reflect that with a more "solid plan" she thinks she will feel better and that will make life more hopeful. Discussed possibility of BPD, she feels she meets many of the criteria and notes her mother has BPD but also thinks many of the symptoms are due to overlap with gender dysphoria and depression. Some grogginess this morning which she suspects may be from Vistaril. No other medication side effects today. Reviewed potential gender affirming care resources at [facility] and provided with [facility] LGBTQIA+ IOP information. Physical Exam Psychiatric Orientation: alert and oriented x 3 Apperance: appropriately dressed and appropriately groomed Eye Contact: + fair eye contact Motor Behavior: no abnormal motor movements Speech: normal rate/rhythm/volume of speech Affect: + depressed affect and + constricted affect Mood: + depressed mood Thought Process: goal directed thought process Thought Content: reality based without delusions, + hopelessness, + worthlessness and + loneliness Suicidal Thoughts: denies suicidal plan (none for hospital, s/p attempt) and denies suicidal intent; + reports suicidal thoughts Homicidal Thoughts: denies homicidal thoughts Hallucinations: no auditory hallucinations and no visual hallucinations Cognition: recent memory grossly intact, remote memory grossly intact, attention grossly intact and language grossly intact Estimated Intelligence: consistent with education level Insight: + limited insight Judgment: + limited judgement Vital Signs (Past 24 Hours) Last Vital Signs Temp 36.5 C 08/01/24 06:43 Pulse 70 08/01/24 06:44 Resp 16 08/01/24 06:43 BP 117/82 08/01/24 06:44 Pulse Ox 99 07/31/24 04:08 O2 Del Method Room Air 07/31/24 04:08 Results & Data ([facility]) Current Inpatient Medications Current Inpatient Medications: Current Inpatient Medications Acetaminophen (Acetaminophen 325 Mg Tab) 650 mg PO Q4H PRN PRN Reason: Headache or Minor Fever Stop: 08/30/24 03:07 Al Hydrox/Mg Hydrox/Simethicone (Aluminum/Magnesium Susp 30 Ml Udc) 30 ml PO Q4H PRN PRN Reason: GI Upset Stop: 08/30/24 03:07 Bismuth Subsalicylate (Bismuth Subsalicylate 262 Mg Chew) 2 tab PO Q30M PRN PRN Reason: Loose Stool/Diarrhea Stop: 08/30/24 03:07 Estradiol (Estradiol 0.1 Mg/24hrs Tdsy) 3 patch TD Q7D [facility] Stop: 08/30/24 16:59 Last Admin: 07/31/24 17:12 Dose: 3 patch Hydroxyzine HCl (Hydroxyzine Hcl 25 Mg Tab) 50 mg PO HSZ PRN PRN Reason: Insomnia Stop: 08/30/24 03:07 Last Admin: 07/31/24 22:07 Dose: 50 mg Hydroxyzine HCl (Hydroxyzine Hcl 25 Mg Tab) 25 mg PO Q4H PRN PRN Reason: Anxiety Stop: 08/30/24 03:07 Last Admin: 07/31/24 03:22 Dose: 25 mg Magnesium Hydroxide (Magnesium Hydroxide Susp 30 Ml Udc) 30 ml PO DAILY PRN PRN Reason: Constipation Stop: 08/30/24 03:07 Mirtazapine (Mirtazapine Tab 15 Mg Tab) 15 mg PO HS JONEL Stop: 08/30/24 21:59 Last Admin: 07/31/24 22:03 Dose: 15 mg Miscellaneous (Remove Nicoderm Patch) 1 each N/A DAILY@0859 [facility] Stop: 08/30/24 08:58 Last Admin: 07/31/24 09:04 Dose: Not Given Miscellaneous (Remove Patch [Estradiol]) 1 each N/A Q7D [facility] Stop: 08/30/24 16:59 Last Admin: 07/31/24 17:11 Dose: Not Given Nicotine (Nicotine 21 Mg/24 Hr Tdsy) 1 patch TD QAM [facility] Stop: 08/30/24 08:59 Last Admin: 07/31/24 09:00 Dose: 1 patch Nicotine Polacrilex (Nicotine Polacrilex 2 Mg Gum) 2 piece MT PRN PRN PRN Reason: Nicotine Withdrawal Symptoms Stop: 08/30/24 03:30 Propranolol HCl (Propranolol Hcl 10 Mg Tab) 10 mg PO BID PRN PRN Reason: social anxiety/panic symptoms Stop: 08/30/24 20:59 Sertraline HCl (Sertraline Hcl 50 Mg Tablet) 50 mg PO QAM [facility] Stop: 08/31/24 08:59 Sodium Chloride (Sodium Chloride 0.65% Na Soln 45 Ml ([place])) 1 - 2 sprays NA PRN PRN PRN Reason: Nasal Dryness/Congestion Stop: 08/30/24 03:07 Spironolactone (Spironolactone 100 Mg Tab) 100 mg PO BID [facility] Stop: 08/30/24 20:59 Last Admin: 07/31/24 22:02 Dose: 100 mg Mental Health & Subst Abuse Tx Therapist Name of Therapist: None Community Development Planner Name of Community Development Planner: Froy
[2024-08-01] MEDS: SERTRALINE HCL 50 MG TABLET PO SCH (10:09)
[2024-08-02] MEDS: PROPRANOLOL HCL 10 MG TAB PO PRN (12:14)
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
[2024-08-02] MEDS: ACETAMINOPHEN 325 MG TAB PO PRN (20:29)
[2024-08-03 08:31] LABS: Chol HDL Ratio 3.5 (0-5)
[2024-08-03 08:53] LABS: Estimated Average Glucose 108 mg/dl; Hemoglobin A1C 5.4 % (4.5-5.6)
[2024-08-03] MEDS ORDERED: guaiFENesin 600 MG TABCR PO PRN (09:04)
[2024-08-03] MEDS: BENZOCAINE/MENTHOL 18 LOZ/1 BOX MT PRN (09:57)
[2024-08-03] MEDS: LORazepam 1 MG TAB PO STA (14:18)
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
[2024-08-04] MEDS: CHOLECALCIFEROL 125 MCG (5,000 UNITS) TAB PO SCH (13:18)
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
[2024-08-05] MEDS ORDERED: DESTROY THIS MEDICATION ONE (09:02)
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
== END 2024-08-05 11:20 | disposition home or self-care (01) | DRG 883 ==
LOC: ED 21:03 → 3S 07-31 02:14 → SUATTDRO 07-31 03:08 → 3S 08-04 16:54